=== PATIENT | male | born 1990 | race Two or more races ===

== ENCOUNTER 2019-02-02 14:48 | Emergency (ER) | payer OTHER ==
[~2019-02-02] VITALS: Ht 177.8 cm; Wt 79.4 kg
--- NOTE | 2019-02-02 15:30 | NUR ---
PT PRESENTED TO THE ER WITH A C/O LEFT INGUINAL PAIN X 10 DAYS. PT IS AMBULATORY WITH A STEADY GAIT. PT IS TRYING TO GIVE A URINE SAMPLE.
--- NOTE | 2019-02-02 16:05 | NUR ---
PT WAS MOVED TO ER 8 AND IS BEING EXAMINED BY Angelito MCGOWAN PA-C
[2019-02-02 16:22] LABS: BASOPHILS # (AUTO) 0.1 /CMM (0.0-0.2); BASOPHILS % (AUTO) 0.9 % (0.0-2.0); EOSINOPHILS % (AUTO) 1.4 % (0.0-6.0); HEMATOCRIT 48 % (39-51); HEMOGLOBIN 16.5 g/dL (13.5-17.5); LYMPHOCYTES # (AUTO) 1.5 /CMM (0.8-4.8); LYMPHOCYTES % (AUTO) 19.9 % (20.0-44.0); MEAN CORPUSCULAR HGB CONC 34 g/dl (31.0-36.0); MEAN CORPUSCULAR VOLUME 86 fL (80-96); MONOCYTES # (AUTO) 0.7 /CMM (0.1-1.30); NEUTROPHILS # (AUTO) 5.2 /CMM (1.8-8.9); NEUTROPHILS % (AUTO) 68.8 % (43.0-81.0); PLATELET COUNT (AUTO) 162 /CMM (150-450); WHITE BLOOD COUNT (AUTO) 7.6 K/uL (4.3-11.0)
[2019-02-02 16:32] LABS: APPEARANCE,URINE Clear (CLEAR); BILIRUBIN,URINE Negative (NEGATIVE); BLOOD, URINE Negative Ery/uL (NEGATIVE); COLOR,URINE Yellow (YELLOW); KETONES,URINE Negative (NEGATIVE); LEUKOCYTE ESTERASE ,URINE Negative (NEGATIVE); NITRITE, URINE Negative (NEGATIVE); PH,URINE 5.5 (5.0-8.0); PROTEIN,URINE Negative (NEGATIVE); UGLUCOSE Negative (NEGATIVE); UROBILINOGEN,URINE 0.2 EU/dL (0.2)
[2019-02-02 16:38] LABS: CALCIUM, SERUM 8.8 mg/dL (8.5-10.1); CREATININE 1.1 mg/dL (0.6-1.3); POTASSIUM 3.7 mmol/L (3.5-5.1)
[2019-02-02 16:43] LABS: ALBUMIN 4.4 g/dL (3.4-5.0); BILIRUBIN,DIRECT 0.1 mg/dL (0.0-0.2); BILIRUBIN,TOTAL 0.8 mg/dL (0.2-1.0); TOTAL PROTEIN, SERUM 8.1 g/dL (6.4-8.2)
[2019-02-02] MEDS ORDERED: IV NS 0.9% 1,000 ML BAG IV ONE (17:30)
[2019-02-02] MEDS ORDERED: CEFTRIAXONE 500 MG VIAL ONE (18:47)
[2019-02-02] MEDS ORDERED: LIDOCAINE 1% INJ 50 ML MDV IJ ONE (18:48)
[2019-02-02] MEDS ORDERED: LIDOCAINE /MPF 1% VIAL 5 ML VIAL ONE (18:48)
[2019-02-02] MEDS ORDERED: CEFTRIAXONE 500 MG VIAL IM ONE (19:00)
--- NOTE | 2019-02-02 19:09 | NUR ---
IV SITE [facility].
[2019-02-02 19:20] VITALS: BP 116/72
--- NOTE | 2019-02-02 19:22 | NUR ---
Patient discharged to home in stable condition. Written and verbal after care instructions given. Patient verbalizes understanding of instruction.
== END 2019-02-02 19:24 | disposition home or self-care (01) ==
LOC: ER 14:51
DX: N45.1 Epididymitis (principal)
CPT/HCPCS: 36415; 76870; 80048; 80076; 81001; 83690; 85025; 87086; 87491; 87591; 96372; 99284; J0696; J3490; J7030; 81000-TC